=== PATIENT | male | born 1970 | race African-American/Black ===

== ENCOUNTER 2016-12-06 19:39 | Emergency (ER) | payer OTHER ==
[~2016-12-06] VITALS: Ht 185.4 cm; Wt 106.8 kg
[~2016-12-06 19:39] MED LIST: ARIP2 PO; GABA-529 PO; SERT50TA12 PO
[2016-12-06] MEDS ORDERED: BUPR-93 PO (19:52)
[2016-12-06 20:27] LABS: BASOPHILS % (AUTO) 0.2 % (0.0-2.0); EOSINOPHILS % (AUTO) 2.6 % (1.0-6.0); HEMATOCRIT 39.6 % (41-53); HEMOGLOBIN 12.4 g/dL (13.5-17.5); LYMPHOCYTES # (AUTO) 2.1 K/uL (1.0-4.8); LYMPHOCYTES % (AUTO) 28.5 % (22.0-44.0); MEAN CORPUSCULAR HEMOGLOBIN 28.7 pg (26.0-34.0); MEAN CORPUSCULAR HGB CONC 31.3 G/dL (31.0-37.0); MEAN CORPUSCULAR VOLUME 92 fL (80-100); MONOCYTES # (AUTO) 0.6 K/uL (0.1-1.0); MONOCYTES % (AUTO) 8.1 % (2.0-9.0); NEUTROPHILS # (AUTO) 4.6 K/uL (1.8-7.7); NEUTROPHILS % (AUTO) 60.6 % (40.0-70.0); PLATELET COUNT (AUTO) 185 K/uL (150-450); RED BLOOD CELL COUNT(AUTO) 4.32 MIL/uL (4.50-5.90); RED CELL DISTRIBUTION WIDTH 14.6 % (11.5-14.5); WHITE BLOOD COUNT (AUTO) 7.5 K/uL (4.5-11.0)
[2016-12-06 20:35] LABS: ANION GAP 3 mmol/L (8-16); CALCIUM, TOTAL 8.2 mg/dL (8.8-10.5); CARBON DIOXIDE 33 mmol/L (22-29); CHLORIDE 108 mmol/L (98-107); CREATININE 0.91 mg/dL (0.60-1.30); GLOMERULAR FILTR. RATE CALC > 60 mL/min (>60); SODIUM SERUM 144 mmol/L (136-145); UREA NITROGEN, BLOOD 13 mg/dL (7-18)
[2016-12-06 20:43] LABS: ALANINE AMINOTRANSFERASE 9 U/L (12-78); ALBUMIN 2.7 g/dL (3.4-5.0); ASPARTATE AMINOTRANSFERASE 15 U/L (15-37); BILIRUBIN,TOTAL 0.2 mg/dL (0.1-1.0); RBC MORPHOLOGY COMMENT NORMAL RBC MORPH
[2016-12-06 20:52] LABS: APPEARANCE,URINE CLEAR (CLEAR); GLUCOSE, URINE (UA) NEGATIVE (NEGATIVE); KETONES,URINE NEGATIVE (NEGATIVE); LEUKOCYTE ESTERASE ,URINE NEGATIVE (NEGATIVE); OCCULT BLOOD,URINE NEGATIVE (NEGATIVE); PROTEIN,URINE NEGATIVE (NEGATIVE)
[2016-12-06 20:55] LABS: ADD UA MICROSCOPIC NO
[2016-12-07 00:46] VITALS: BP 122/76
== END 2016-12-07 00:55 | disposition home or self-care (01) ==
LOC: EMS 19:40
DX: R10.11 Right upper quadrant pain (principal); F12.90 Cannabis use, unspecified, uncomplicated; F17.210 Nicotine dependence, cigarettes, uncomplicated
CPT/HCPCS: 76700; 99285; 99406

== ENCOUNTER 2017-06-14 14:17 | Emergency (ER) | payer OTHER ==
[~2017-06-14] VITALS: Ht 188 cm; Wt 109.1 kg
[~2017-06-14 14:17] MED LIST changes: +BUPR-93 PO
[2017-06-14 14:21] VITALS: BP 153/97
== END 2017-06-14 17:22 | disposition home or self-care (01) ==
LOC: EMS 14:18
DX: F32.9 Major depressive disorder, single episode, unspecified (principal); F41.9 Anxiety disorder, unspecified; F20.9 Schizophrenia, unspecified; F17.210 Nicotine dependence, cigarettes, uncomplicated; F12.90 Cannabis use, unspecified, uncomplicated
CPT/HCPCS: 99284

== ENCOUNTER 2018-06-04 16:35 | Inpatient (IN) | payer OTHER ==
[~2018-06-04] VITALS: Ht 185.4 cm; Wt 97.6 kg
[2018-06-04 20:19] LABS: BASOPHILS % (AUTO) 0.6 % (0.0-2.0); EOSINOPHILS % (AUTO) 0.4 % (1.0-6.0); HEMATOCRIT 42.3 % (41-53); HEMOGLOBIN 13.8 g/dL (13.5-17.5); LYMPHOCYTES # (AUTO) 1.2 K/uL (1.0-4.8); LYMPHOCYTES % (AUTO) 22.9 % (22.0-44.0); MEAN CORPUSCULAR HEMOGLOBIN 29.2 pg (26.0-34.0); MEAN CORPUSCULAR HGB CONC 32.6 G/dL (31.0-37.0); MEAN CORPUSCULAR VOLUME 90 fL (80-100); MONOCYTES # (AUTO) 0.6 K/uL (0.1-1.0); NEUTROPHILS # (AUTO) 3.3 K/uL (1.8-7.7); NEUTROPHILS % (AUTO) 64.1 % (40.0-70.0); PLATELET COUNT (AUTO) 183 K/uL (150-450); RED BLOOD CELL COUNT(AUTO) 4.73 MIL/uL (4.50-5.90); RED CELL DISTRIBUTION WIDTH 14.4 % (11.5-14.5)
[2018-06-04 20:40] LABS: ANION GAP 10 mmol/L (8-16); CALCIUM, TOTAL 8.4 mg/dL (8.8-10.5); CARBON DIOXIDE 27 mmol/L (22-29); CHLORIDE 102 mmol/L (98-107); CREATININE 0.99 mg/dL (0.60-1.30); GLOMERULAR FILTR. RATE CALC > 60 mL/min (>60); GLUCOSE,RANDOM 82 mg/dL (70-110); POTASSIUM 3.7 mmol/L (3.5-5.1); SODIUM SERUM 139 mmol/L (136-145); UREA NITROGEN, BLOOD 12 mg/dL (7-18)
[2018-06-04 20:59] LABS: B-TYPE NATRIURETIC PEPTIDE < 5 pg/mL (0-100)
[2018-06-04 21:06] LABS: ALANINE AMINOTRANSFERASE 12 U/L (12-78); ALBUMIN 4.1 g/dL (3.4-5.0); ALKALINE PHOSPHATASE 44 U/L (46-116); ASPARTATE AMINOTRANSFERASE 58 U/L (15-37); BILIRUBIN,TOTAL 0.6 mg/dL (0.1-1.0); CREATINE KINASE, TOTAL ONLY 642 U/L (39-308)
[2018-06-04] MEDS ORDERED: ASPIRIN 325 MG TABLET PO ONE (21:15)
[2018-06-04] MEDS ORDERED: NITROGLYCERIN 2% (1 GM=INCH) PACKET TP ONE (21:15)
[2018-06-04 21:20] LABS: APPEARANCE,URINE CLOUDY (CLEAR); GLUCOSE, URINE (UA) NEGATIVE (NEGATIVE); KETONES,URINE >=80 mg/dL (NEGATIVE); LEUKOCYTE ESTERASE ,URINE NEGATIVE (NEGATIVE); NITRATE,URINE NEGATIVE (NEGATIVE); OCCULT BLOOD,URINE NEGATIVE (NEGATIVE); PH,URINE 5.5 (5.0-8.0); PROTEIN,URINE POS 1+ (NEGATIVE)
[2018-06-04 21:24] LABS: AMPHET/METH SCREEN,URINE NEGATIVE (NEGATIVE); BARBITURATE SCREEN, URINE NEGATIVE (NEGATIVE); BENZODIAZEPINES SCREEN,URINE NEGATIVE (NEGATIVE); CANNABINOID SCREEN,URINE NEGATIVE (NEGATIVE); COCAINE SCREEN,URINE NEGATIVE (NEGATIVE); METHADONE SCREEN, URINE NEGATIVE (NEGATIVE); OPIATE SCREEN,URINE NEGATIVE (NEGATIVE); PHENCYCLIDINE SCREEN,URINE NEGATIVE (NEGATIVE)
[2018-06-04] MEDS ORDERED: MORPHINE SULFATE 4 MG/ML SYRINGE IVP PRN (21:30)
[2018-06-04] MEDS ORDERED: 0.9% SODIUM CHLORIDE 10 ML SYRINGE IVP PRN ×2 (21:30→23:00)
[2018-06-04] MEDS ORDERED: HEPARIN SODIUM,PORCINE 5,000 UNITS/ML VIAL IVP ONE (21:30)
[2018-06-04] MEDS ORDERED: HEPARIN SODIUM,PORCINE 5,000 UNITS/ML VIAL IVP PRN ×2 (21:30)
[2018-06-04] MEDS ORDERED: HEPARIN SODIUM 25000 UNITS/D5W 250 ML IV PRN (21:30)
[2018-06-04] MEDS ORDERED: ONDANSETRON HCL 4 MG/2 ML VIAL IVP PRN ×2 (21:30→23:00)
[2018-06-04] MEDS ORDERED: ACETAMINOPHEN 325 MG TABLET PO PRN ×2 (21:30→23:00)
[2018-06-04 21:31] LABS: BILIRUBIN,URINE PRELIM. POSITIVE (NEGATIVE)
[2018-06-04 21:58] LABS: BACTERIA,URINE Rare /HPF (None Seen); MUCUS,URINE Many LPF (None Seen); RBC,URINE None Seen /HPF (0-2); SQUAMOUS EPITHELIAL CELL,UR Rare /LPF (None Seen); WBC,URINE 0-2 /HPF (0-5)
[2018-06-04 22:29] LABS: PROTHROMBIN TIME 10.2 SEC (9.4-11.6)
[2018-06-04] MEDS ORDERED: ZOLPIDEM TARTRATE 5 MG TABLET PO PRN (23:00)
[2018-06-04] MEDS: DOCUSATE SODIUM 100 MG CAPSULE PO SCH (23:00)
[2018-06-04] MEDS ORDERED: METOPROLOL TARTRATE 25 MG TABLET PO ONE (23:00)
[2018-06-04] MEDS ORDERED: POTASSIUM CHLORIDE 20 MEQ ER TABLET PO PRN (23:00)
[2018-06-04] MEDS ORDERED: MAGNESIUM SULFATE 2 GM/WATER 50 ML IV PRN (23:00)
[2018-06-04] MEDS ORDERED: MAGNESIUM OXIDE 400 MG TABLET PO PRN (23:00)
[2018-06-04] MEDS ORDERED: NITROGLYCERIN 2% (1 GM=INCH) PACKET TP PRN (23:00)
[2018-06-04] MEDS ORDERED: ATORVASTATIN CALCIUM 40 MG TABLET PO ONE (23:00)
[2018-06-04] MEDS ORDERED: MAGNESIUM SULFATE 4 GM/WATER 100 ML IV PRN (23:00)
[2018-06-04] MEDS ORDERED: POTASSIUM CHL 10 MEQ/WATER 50 ML IV PRN (23:00)
[2018-06-04 23:45] VITALS: BP 119/76
[2018-06-05] VITALS (15 sets, daily range): BP systolic 101–139; BP diastolic 52–79
[2018-06-05] MEDS ORDERED: MORPHINE SULFATE 2 MG/ML SYRINGE IVP PRN
[2018-06-05] MEDS ORDERED: HEPARIN SODIUM 25000 UNITS/D5W 250 ML IV PRN (00:36)
[2018-06-05] MEDS ORDERED: HEPARIN SODIUM,PORCINE 5,000 UNITS/ML VIAL IVP PRN ×2 (00:45)
[2018-06-05 05:13] LABS: BASOPHILS % (AUTO) 0.6 % (0.0-2.0); EOSINOPHILS % (AUTO) 2.1 % (1.0-6.0); HEMATOCRIT 39.4 % (41-53); HEMOGLOBIN 12.9 g/dL (13.5-17.5); LYMPHOCYTES # (AUTO) 1.4 K/uL (1.0-4.8); LYMPHOCYTES % (AUTO) 29.8 % (22.0-44.0); MEAN CORPUSCULAR HEMOGLOBIN 29.4 pg (26.0-34.0); MEAN CORPUSCULAR HGB CONC 32.8 G/dL (31.0-37.0); MEAN CORPUSCULAR VOLUME 90 fL (80-100); MONOCYTES # (AUTO) 0.7 K/uL (0.1-1.0); NEUTROPHILS # (AUTO) 2.4 K/uL (1.8-7.7); NEUTROPHILS % (AUTO) 52.5 % (40.0-70.0); PLATELET COUNT (AUTO) 183 K/uL (150-450); RED BLOOD CELL COUNT(AUTO) 4.39 MIL/uL (4.50-5.90); RED CELL DISTRIBUTION WIDTH 14.2 % (11.5-14.5)
[2018-06-05 05:35] LABS: ALANINE AMINOTRANSFERASE 16 U/L (12-78); ALBUMIN 3.4 g/dL (3.4-5.0); ALKALINE PHOSPHATASE 40 U/L (46-116); ANION GAP 7 mmol/L (8-16); ASPARTATE AMINOTRANSFERASE 93 U/L (15-37); BILIRUBIN,TOTAL 0.5 mg/dL (0.1-1.0); CALCIUM, TOTAL 8.5 mg/dL (8.8-10.5); CARBON DIOXIDE 29 mmol/L (22-29); CHLORIDE 105 mmol/L (98-107); CHOL/HDL RATIO 2.1 (4.2-7.3); CHOLESTEROL 158 mg/dL (131-200); CREATININE 0.91 mg/dL (0.60-1.30); GLOMERULAR FILTR. RATE CALC > 60 mL/min (>60); GLUCOSE,RANDOM 90 mg/dL (70-110); HDL CHOLESTEROL 75 mg/dL (40-60); LDL CHOL (CALC.) 77 mg/dL (0-130); POTASSIUM 3.6 mmol/L (3.5-5.1); SODIUM SERUM 141 mmol/L (136-145); TOTAL PROTEIN, SERUM 6.7 g/dL (6.4-8.2); TRIGLYCERIDES 30 mg/dL (15-150); UREA NITROGEN, BLOOD 16 mg/dL (7-18)
[2018-06-05] MEDS: ASPIRIN 81 MG CHEWABLE TABLET PO SCH (08:43)
[2018-06-05] MEDS: PANTOPRAZOLE SODIUM 40 MG/VIAL IVP SCH (08:43)
[2018-06-05] MEDS: DOCUSATE SODIUM 100 MG CAPSULE PO SCH ×2 (08:43→21:13)
[2018-06-05] MEDS ORDERED: TICAGRELOR 90 MG TABLET PO ONE (08:45)
[2018-06-05] MEDS ORDERED: SODIUM CHLORIDE 0.9% 500 ML IV ONE (09:17)
[2018-06-05] MEDS ORDERED: LIDOCAINE 1% 30 ML/SOD BICARB 8.4% 4 ML SQ ONE (09:22)
[2018-06-05] MEDS ORDERED: HEPARIN SODIUM 2,000 UNITS in HEPARIN SODIUM 1000 UNITS/NS 1,000 ML IARTER ONE (09:23)
[2018-06-05] MEDS ORDERED: IOHEXOL 300 MG/ML 100 ML VIAL IARTER ONE ×2 (09:26→10:26)
[2018-06-05] MEDS ORDERED: IOHEXOL 300 MG/ML 150 ML VIAL IARTER ONE (09:26)
[2018-06-05] MEDS ORDERED: VERAPAMIL HCL 2.5 MG/ML 2 ML VIAL ONE (09:33)
[2018-06-05] MEDS ORDERED: IOHEXOL 300 MG/ML 50 ML VIAL ONE ×2 (09:33→10:02)
[2018-06-05] MEDS ORDERED: NITROGLYCERIN 50 MG/D5% WATER 250 ML ONE (09:34)
[2018-06-05] MEDS ORDERED: HEPARIN SODIUM,PORCINE 5,000 UNITS/ML VIAL IVP ONE (09:40)
[2018-06-05] MEDS ORDERED: IOHEXOL 300 MG/ML 100 ML VIAL ONE (09:40)
[2018-06-05] MEDS ORDERED: VERAPAMIL HCL 2.5 MG/ML 2 ML VIAL ICOR ONE (10:03)
[2018-06-05] MEDS ORDERED: NITROGLYCERIN/D5W 50 MG/250 ML IV BOTTLE ICOR ONE (10:03)
[2018-06-05] MEDS ORDERED: HEPARIN SODIUM 1000 UNITS/NS 1,000 ML ONE (12:41)
[2018-06-05] MEDS ORDERED: LIDOCAINE/PF 1% 30 ML VIAL ONE (12:41)
[2018-06-05] MEDS ORDERED: SODIUM BICARBONATE 50 MEQ/50 ML VIAL ONE (12:41)
[2018-06-05] MEDS ORDERED: IOHEXOL 300 MG/ML 150 ML VIAL ONE (12:41)
[2018-06-05] MEDS: TICAGRELOR 90 MG TABLET PO SCH (21:13)
[2018-06-06] VITALS (7 sets, daily range): BP systolic 102–124; BP diastolic 62–84
[2018-06-06] MEDS ORDERED: ATORVASTATIN CALCIUM 40 MG TABLET PO SCH (09:00)
[2018-06-06] MEDS: PANTOPRAZOLE SODIUM 40 MG/VIAL IVP SCH (09:18)
[2018-06-06] MEDS: TICAGRELOR 90 MG TABLET PO SCH (09:18)
[2018-06-06] MEDS: DOCUSATE SODIUM 100 MG CAPSULE PO SCH (09:19)
[2018-06-06] MEDS: ASPIRIN 81 MG CHEWABLE TABLET PO SCH (09:19)
[2018-06-06] MEDS ORDERED: TICA90TA PO ×2 (13:21→13:22)
[2018-06-06] MEDS ORDERED: ASPI-556 PO (13:24)
[2018-06-06] MEDS ORDERED: ATOR40TA28 PO (13:25)
== END 2018-06-06 14:25 | disposition home or self-care (01) | DRG 174 ==
LOC: EMS 16:36 → ICU 21:30
PROVIDERS: ADMIT Internal Medicine; ATTEND Internal Medicine
PROC: 4A023N7 Measurement of Cardiac Sampling and Pressure, Left Heart, Percutaneous Approach (ICD-10-PCS; principal; 2018-06-05)
PROC: 027035Z Dilation of Coronary Artery, One Artery with Two Drug-eluting Intraluminal Devices, Percutaneous Approach (ICD-10-PCS; 2018-06-05)
PROC: B2111ZZ Fluoroscopy of Multiple Coronary Arteries using Low Osmolar Contrast (ICD-10-PCS; 2018-06-05)
PROC: B2151ZZ Fluoroscopy of Left Heart using Low Osmolar Contrast (ICD-10-PCS; 2018-06-05)
PROC: B41F1ZZ Fluoroscopy of Right Lower Extremity Arteries using Low Osmolar Contrast (ICD-10-PCS; 2018-06-05)
PROC: 3E0234Z Introduction of Serum, Toxoid and Vaccine into Muscle, Percutaneous Approach (ICD-10-PCS; 2018-06-05)
DX: I21.4 Non-ST elevation (NSTEMI) myocardial infarction (principal); F20.9 Schizophrenia, unspecified; I25.10 Atherosclerotic heart disease of native coronary artery without angina pectoris; F17.210 Nicotine dependence, cigarettes, uncomplicated; F32.9 Major depressive disorder, single episode, unspecified; F41.9 Anxiety disorder, unspecified; Z79.899 Other long term (current) drug therapy; Z23 Encounter for immunization
CPT/HCPCS: 83735; 87081; 90686; 92920; 92928; 93005; 93306; 96365; 96376; 99291; C9113; J1644; J3490; Q9967

== ENCOUNTER 2020-05-31 23:33 | Emergency (ER) | payer OTHER ==
[~2020-05-31] VITALS: Ht 185.4 cm; Wt 111.4 kg
[~2020-05-31 23:33] MED LIST changes: +ASPI-556 PO; +ATOR40TA28 PO; +GABA-1216 PO; -GABA-529 PO; +TICA90TA PO
[2020-06-01 01:03] LABS: BASOPHILS % (AUTO) 0.8 % (0.0-2.0); EOSINOPHILS % (AUTO) 0.6 % (1.0-6.0); HEMATOCRIT 42.2 % (41-53); HEMOGLOBIN 13.6 g/dL (13.5-17.5); LYMPHOCYTES # (AUTO) 1.7 K/uL (1.0-4.8); LYMPHOCYTES % (AUTO) 40.4 % (22.0-44.0); MEAN CORPUSCULAR HGB CONC 32.2 G/dL (31.0-37.0); MEAN CORPUSCULAR VOLUME 90 fL (80-100); MONOCYTES # (AUTO) 0.4 K/uL (0.1-1.0); MONOCYTES % (AUTO) 9.8 % (2.0-9.0); NEUTROPHILS % (AUTO) 48.4 % (40.0-70.0); PLATELET COUNT (AUTO) 163 K/uL (150-450); RED BLOOD CELL COUNT(AUTO) 4.68 MIL/uL (4.50-5.90); RED CELL DISTRIBUTION WIDTH 14.8 % (11.5-14.5)
[2020-06-01 01:07] LABS: ANION GAP 7 mmol/L (8-16); CALCIUM, TOTAL 9.3 mg/dL (8.8-10.5); CARBON DIOXIDE 30 mmol/L (22-29); CHLORIDE 103 mmol/L (98-107); CREATININE 1.28 mg/dL (0.60-1.30); GLOMERULAR FILTR. RATE CALC > 60 mL/min (>60); GLUCOSE,RANDOM 94 mg/dL (70-110); POTASSIUM 3.5 mmol/L (3.5-5.1); SODIUM SERUM 140 mmol/L (136-145); UREA NITROGEN, BLOOD 12 mg/dL (7-18)
[2020-06-01 01:13] LABS: ALANINE AMINOTRANSFERASE 10 U/L (12-78); ALBUMIN 4.2 g/dL (3.4-5.0); ALKALINE PHOSPHATASE 38 U/L (46-116); ASPARTATE AMINOTRANSFERASE 16 U/L (15-37); BILIRUBIN,TOTAL 0.6 mg/dL (0.1-1.0); TOTAL PROTEIN, SERUM 7.6 g/dL (6.4-8.2)
[2020-06-01 02:06] VITALS: BP 110/65
== END 2020-06-01 02:08 | disposition home or self-care (01) ==
LOC: EMS 23:33
DX: R20.2 Paresthesia of skin (principal); F17.210 Nicotine dependence, cigarettes, uncomplicated; F32.9 Major depressive disorder, single episode, unspecified; Z59.0 Homelessness
CPT/HCPCS: 70450

== ENCOUNTER 2020-06-01 07:49 | Inpatient (IN) | payer MEDICAID, OTHER ==
[~2020-06-01] VITALS: Ht 175.3 cm; Wt 81.8 kg
[2020-06-01] MEDS ORDERED: HydrOXYzine PAMOATE 50 MG CAPSULE PO ONE (09:15)
[2020-06-01] MEDS ORDERED: HALOPERIDOL 5 MG TABLET PO ONE (09:15)
[2020-06-01 09:27] LABS: BASOPHILS % (AUTO) 0.7 % (0.0-2.0); EOSINOPHILS % (AUTO) 0.7 % (1.0-6.0); HEMATOCRIT 41.5 % (41-53); HEMOGLOBIN 13.5 g/dL (13.5-17.5); LYMPHOCYTES # (AUTO) 1.1 K/uL (1.0-4.8); LYMPHOCYTES % (AUTO) 28.7 % (22.0-44.0); MEAN CORPUSCULAR HEMOGLOBIN 29.4 pg (26.0-34.0); MEAN CORPUSCULAR HGB CONC 32.6 G/dL (31.0-37.0); MEAN CORPUSCULAR VOLUME 90 fL (80-100); MONOCYTES # (AUTO) 0.3 K/uL (0.1-1.0); MONOCYTES % (AUTO) 7.7 % (2.0-9.0); NEUTROPHILS # (AUTO) 2.4 K/uL (1.8-7.7); NEUTROPHILS % (AUTO) 62.2 % (40.0-70.0); PLATELET COUNT (AUTO) 161 K/uL (150-450); RED BLOOD CELL COUNT(AUTO) 4.59 MIL/uL (4.50-5.90); RED CELL DISTRIBUTION WIDTH 14.4 % (11.5-14.5)
[2020-06-01 09:36] LABS: ANION GAP 5 mmol/L (8-16); CALCIUM, TOTAL 8.7 mg/dL (8.8-10.5); CARBON DIOXIDE 32 mmol/L (22-29); CHLORIDE 101 mmol/L (98-107); CREATININE 1.08 mg/dL (0.60-1.30); GLOMERULAR FILTR. RATE CALC > 60 mL/min (>60); GLUCOSE,RANDOM 140 mg/dL (70-110); POTASSIUM 3.5 mmol/L (3.5-5.1); SODIUM SERUM 138 mmol/L (136-145); UREA NITROGEN, BLOOD 13 mg/dL (7-18)
[2020-06-01] MEDS ORDERED: HALOPERIDOL 5 MG TABLET PO PRN (09:45)
[2020-06-01] MEDS ORDERED: ZOLPIDEM TARTRATE 10 MG TABLET PO PRN (09:45)
[2020-06-01 09:53] LABS: ALANINE AMINOTRANSFERASE 9 U/L (12-78); ALKALINE PHOSPHATASE 39 U/L (46-116); ASPARTATE AMINOTRANSFERASE 17 U/L (15-37); BILIRUBIN,TOTAL 0.6 mg/dL (0.1-1.0); CHOL/HDL RATIO 2.6 (4.2-7.3); CHOLESTEROL 183 mg/dL (131-200); FREE T4 (FREE THYROXINE) 1.12 ng/dL (0.76-1.46); HDL CHOLESTEROL 71 mg/dL (40-60); LDL CHOL (CALC.) 101 mg/dL (0-130); THYROID STIMULATING HORMONE 0.63 uIU/mL (0.36-3.74); TOTAL PROTEIN, SERUM 7.3 g/dL (6.4-8.2); TRIGLYCERIDES 54 mg/dL (15-150)
[2020-06-01 11:22] LABS: COVID AG,FIA SOURCE NASOPHARYNGEAL
[2020-06-01 13:31] LABS: APPEARANCE,URINE CLEAR (CLEAR); GLUCOSE, URINE (UA) NEGATIVE (NEGATIVE); KETONES,URINE TRACE mg/dL (NEGATIVE); LEUKOCYTE ESTERASE ,URINE NEGATIVE (NEGATIVE); NITRATE,URINE NEGATIVE (NEGATIVE); OCCULT BLOOD,URINE NEGATIVE (NEGATIVE); PH,URINE 5.5 (5.0-8.0); PROTEIN,URINE TRACE (NEGATIVE)
[2020-06-01 13:37] LABS: AMPHET/METH SCREEN,URINE NEGATIVE (NEGATIVE); BARBITURATE SCREEN, URINE NEGATIVE (NEGATIVE); BENZODIAZEPINES SCREEN,URINE NEGATIVE (NEGATIVE); BILIRUBIN,URINE PRELIM. POSITIVE (NEGATIVE); CANNABINOID SCREEN,URINE NEGATIVE (NEGATIVE); COCAINE SCREEN,URINE NEGATIVE (NEGATIVE); METHADONE SCREEN, URINE NEGATIVE (NEGATIVE); OPIATE SCREEN,URINE NEGATIVE (NEGATIVE)
[2020-06-01 13:39] LABS: BACTERIA,URINE None Seen /HPF (None Seen); RBC,URINE None Seen /HPF (0-2); WBC,URINE None Seen /HPF (0-5)
[2020-06-01 13:51] LABS: PHENCYCLIDINE SCREEN,URINE NEGATIVE (NEGATIVE)
[2020-06-01] MEDS ORDERED: LOPERAMIDE HCL 2 MG CAPSULE PO PRN (16:00)
[2020-06-01] MEDS ORDERED: GuaiFENesin/D-METHORPHAN [SUGAR-FREE] 200-20MG/10 ML SYRUP UDCUP PO PRN (16:00)
[2020-06-01] MEDS ORDERED: ACETAMINOPHEN 325 MG TABLET PO PRN (16:00)
[2020-06-01] MEDS ORDERED: MAGNESIUM HYDROXIDE SUSPENSION 30 ML UDCUP PO PRN (16:00)
[2020-06-01] MEDS ORDERED: MAG HYDROX/AL HYDROX/SIMETH ES 30 ML SUSPENSION UDCUP PO PRN (16:00)
[2020-06-01] MEDS ORDERED: ALBUTEROL SULFATE HFA 90 MCG/PUFF 8 GM INHALER IH PRN (16:00)
[2020-06-01] MEDS ORDERED: PETROLATUM,WHITE 28 GM JELLY TP PRN (16:00)
[2020-06-01] MEDS ORDERED: ONDANSETRON HCL 4 MG TABLET PO PRN (16:00)
[2020-06-01] MEDS ORDERED: NICOTINE 14 MG/24 HOUR PATCH TD PRN (16:00)
[2020-06-01] MEDS ORDERED: CloNIDine HCL 0.1 MG TABLET PO PRN (16:00)
[2020-06-01] MEDS ORDERED: DOCUSATE SODIUM 100 MG CAPSULE PO PRN (16:00)
[2020-06-01 16:05] VITALS: BP 133/61
[2020-06-01] MEDS: ATORVASTATIN CALCIUM 40 MG TABLET PO SCH (21:41)
[2020-06-01] MEDS: TICAGRELOR 90 MG TABLET PO SCH (21:41)
[2020-06-01] MEDS ORDERED: INFLUENZA VIRUS VACCINE QVS 2020-21 (6MO+)/PF 60 MCG/0.5 ML SYRINGE IM ONE (23:45)
[2020-06-02 06:23] VITALS: BP 116/73
[2020-06-02 09:10] VITALS: BP 115/52
[2020-06-02] MEDS: ASPIRIN 81 MG EC TABLET PO SCH (09:14)
[2020-06-02] MEDS: TICAGRELOR 90 MG TABLET PO SCH ×2 (09:15→16:00)
[2020-06-02] MEDS: GABAPENTIN 100 MG CAPSULE PO SCH (16:00)
[2020-06-02 16:09] VITALS: BP 129/75
[2020-06-02 18:06] VITALS: BP 129/75
[2020-06-02] MEDS: ATORVASTATIN CALCIUM 40 MG TABLET PO SCH (20:05)
[2020-06-02] MEDS: ARIPiprazole 10 MG TABLET PO SCH (20:05)
[2020-06-02] MEDS: IBUPROFEN 400 MG TABLET PO PRN (20:06)
[2020-06-03 06:03] VITALS: BP 123/65
[2020-06-03 08:57] VITALS: BP 113/71
[2020-06-03] MEDS: GABAPENTIN 100 MG CAPSULE PO SCH ×2 (09:23→16:19)
[2020-06-03] MEDS: ASPIRIN 81 MG EC TABLET PO SCH (09:23)
[2020-06-03] MEDS: BuPROPion HCL XL 150 MG ER TABLET PO SCH (09:23)
[2020-06-03] MEDS: TICAGRELOR 90 MG TABLET PO SCH ×2 (09:23→16:19)
[2020-06-03] MEDS: SERTRALINE HCL 50 MG TABLET PO SCH (09:23)
[2020-06-03] MEDS: IBUPROFEN 400 MG TABLET PO PRN ×2 (10:12→20:09)
[2020-06-03 16:17] VITALS: BP 134/86
[2020-06-03] MEDS: ARIPiprazole 10 MG TABLET PO SCH (20:09)
[2020-06-03] MEDS: ATORVASTATIN CALCIUM 40 MG TABLET PO SCH (20:09)
[2020-06-04 04:05] VITALS: BP 127/75
[2020-06-04] MEDS: BuPROPion HCL XL 150 MG ER TABLET PO SCH (09:31)
[2020-06-04] MEDS: GABAPENTIN 100 MG CAPSULE PO SCH ×2 (09:31→16:01)
[2020-06-04] MEDS: SERTRALINE HCL 50 MG TABLET PO SCH (09:31)
[2020-06-04] MEDS: TICAGRELOR 90 MG TABLET PO SCH ×2 (09:31→16:01)
[2020-06-04] MEDS: ASPIRIN 81 MG EC TABLET PO SCH (09:32)
[2020-06-04 09:43] VITALS: BP 131/78
[2020-06-04] MEDS: IBUPROFEN 400 MG TABLET PO PRN (16:04)
[2020-06-04 16:46] VITALS: BP 125/85
[2020-06-04] MEDS: ARIPiprazole 10 MG TABLET PO SCH (20:19)
[2020-06-04] MEDS: ATORVASTATIN CALCIUM 40 MG TABLET PO SCH (20:19)
[2020-06-05 04:35] VITALS: BP 127/73
[2020-06-05] MEDS: SERTRALINE HCL 50 MG TABLET PO SCH (08:31)
[2020-06-05] MEDS: BuPROPion HCL XL 150 MG ER TABLET PO SCH (08:31)
[2020-06-05] MEDS: GABAPENTIN 100 MG CAPSULE PO SCH ×2 (08:31→15:59)
[2020-06-05] MEDS: ASPIRIN 81 MG EC TABLET PO SCH (08:32)
[2020-06-05] MEDS: TICAGRELOR 90 MG TABLET PO SCH ×2 (08:32→15:59)
[2020-06-05 08:39] VITALS: BP 109/77
[2020-06-05] MEDS: IBUPROFEN 400 MG TABLET PO PRN (15:59)
[2020-06-05 16:21] VITALS: BP 121/81
[2020-06-05] MEDS: LORazepam 2 MG TABLET PO PRN (19:15)
[2020-06-05] MEDS: ARIPiprazole 10 MG TABLET PO SCH (19:56)
[2020-06-05] MEDS: ATORVASTATIN CALCIUM 40 MG TABLET PO SCH (19:56)
[2020-06-06 05:27] VITALS: BP 122/80
[2020-06-06 08:14] VITALS: BP 122/80
[2020-06-06] MEDS: BuPROPion HCL XL 150 MG ER TABLET PO SCH (08:23)
[2020-06-06] MEDS: SERTRALINE HCL 50 MG TABLET PO SCH (08:23)
[2020-06-06] MEDS: TICAGRELOR 90 MG TABLET PO SCH ×2 (08:24→16:58)
[2020-06-06] MEDS: ASPIRIN 81 MG EC TABLET PO SCH (08:24)
[2020-06-06] MEDS: GABAPENTIN 100 MG CAPSULE PO SCH ×2 (08:25→16:58)
[2020-06-06] MEDS: IBUPROFEN 400 MG TABLET PO PRN (14:13)
[2020-06-06 16:13] VITALS: BP 128/98
[2020-06-06] MEDS: ARIPiprazole 10 MG TABLET PO SCH (19:57)
[2020-06-06] MEDS: ATORVASTATIN CALCIUM 40 MG TABLET PO SCH (19:57)
[2020-06-07 00:08] VITALS: BP 112/70
[2020-06-07 01:32] VITALS: BP 112/81
[2020-06-07] MEDS: IBUPROFEN 400 MG TABLET PO PRN ×3 (01:35→23:09)
[2020-06-07] MEDS: TICAGRELOR 90 MG TABLET PO SCH ×2 (08:14→16:08)
[2020-06-07] MEDS: GABAPENTIN 100 MG CAPSULE PO SCH ×2 (08:15→16:08)
[2020-06-07] MEDS: BuPROPion HCL XL 150 MG ER TABLET PO SCH (08:15)
[2020-06-07] MEDS: SERTRALINE HCL 50 MG TABLET PO SCH (08:15)
[2020-06-07] MEDS: ASPIRIN 81 MG EC TABLET PO SCH (08:15)
[2020-06-07 08:34] VITALS: BP 123/81
[2020-06-07] MEDS: LORazepam 2 MG TABLET PO PRN (15:11)
[2020-06-07 16:16] VITALS: BP 133/84
[2020-06-07] MEDS: ARIPiprazole 10 MG TABLET PO SCH (20:28)
[2020-06-07] MEDS: ATORVASTATIN CALCIUM 40 MG TABLET PO SCH (20:28)
[2020-06-08 05:04] VITALS: BP 121/80
[2020-06-08] MEDS: BuPROPion HCL XL 150 MG ER TABLET PO SCH (08:10)
[2020-06-08] MEDS: GABAPENTIN 100 MG CAPSULE PO SCH ×2 (08:10→16:02)
[2020-06-08] MEDS: TICAGRELOR 90 MG TABLET PO SCH ×2 (08:10→16:02)
[2020-06-08] MEDS: SERTRALINE HCL 50 MG TABLET PO SCH (08:10)
[2020-06-08] MEDS: ASPIRIN 81 MG EC TABLET PO SCH (08:11)
[2020-06-08 08:32] VITALS: BP 109/74
[2020-06-08] MEDS: IBUPROFEN 400 MG TABLET PO PRN (16:05)
[2020-06-08 16:25] VITALS: BP 123/85
[2020-06-08] MEDS: ARIPiprazole 10 MG TABLET PO SCH (20:01)
[2020-06-08] MEDS: ATORVASTATIN CALCIUM 40 MG TABLET PO SCH (20:01)
== END 2020-06-08 20:30 | disposition home or self-care (01) | DRG 750 ==
LOC: EMS 07:50 → B2S 09:31 → UNDOADMIN 12:27 → B2S 12:27
PROVIDERS: ADMIT Psychiatry & Neurology Child & Adolescent Psychiatry; ATTEND Psychiatry & Neurology Child & Adolescent Psychiatry
DX: F20.0 Paranoid schizophrenia (principal); F41.9 Anxiety disorder, unspecified; I25.10 Atherosclerotic heart disease of native coronary artery without angina pectoris; Z95.1 Presence of aortocoronary bypass graft; I10 Essential (primary) hypertension; Z23 Encounter for immunization; Z03.818 Encounter for observation for suspected exposure to other biological agents ruled out
CPT/HCPCS: 83036; 84439; 84443; 87426; 90686; G0480

== ENCOUNTER 2020-08-13 20:30 | Emergency (ER) | payer MEDICAID, OTHER ==
[~2020-08-13] VITALS: Ht 185.4 cm; Wt 100.0 kg
[2020-08-13 23:30] VITALS: BP 129/67
== END 2020-08-13 23:30 | disposition home or self-care (01) ==
LOC: EMS 20:30
DX: S62.316A Displaced fracture of base of fifth metacarpal bone, right hand, initial encounter for closed fracture (principal); F41.9 Anxiety disorder, unspecified; F32.9 Major depressive disorder, single episode, unspecified; F20.9 Schizophrenia, unspecified; F17.210 Nicotine dependence, cigarettes, uncomplicated; Z79.82 Long term (current) use of aspirin; Z59.0 Homelessness; X58.XXXA Exposure to other specified factors, initial encounter; Y93.89 Activity, other specified; Y92.89 Other specified places as the place of occurrence of the external cause; Y99.8 Other external cause status

== ENCOUNTER 2022-05-09 17:08 | Emergency (ER) | payer OTHER ==
[~2022-05-09] VITALS: Ht 185.4 cm; Wt 128.6 kg
[~2022-05-09 17:08] MED LIST changes: +ARIP10TA38 PO; -ARIP2 PO; +ASPI-1444 PO; -ASPI-556 PO; +SERT-158 PO; -SERT50TA12 PO
[2022-05-09] MEDS ORDERED: ASPIRIN 325 MG DR TABLET PO ONE (19:45)
[2022-05-09] MEDS ORDERED: ASPI-1450 PO (20:32)
[2022-05-09 20:39] VITALS: BP 108/65
== END 2022-05-09 20:40 | disposition home or self-care (01) ==
LOC: EMS 17:08
DX: I80.9 Phlebitis and thrombophlebitis of unspecified site (principal); F20.9 Schizophrenia, unspecified; F32.9 Major depressive disorder, single episode, unspecified; F41.9 Anxiety disorder, unspecified; F10.20 Alcohol dependence, uncomplicated; F17.210 Nicotine dependence, cigarettes, uncomplicated
CPT/HCPCS: 99283